=== PATIENT | male | born 1990 | race Caucasian/White ===

== ENCOUNTER 2018-04-19 00:02 | Emergency (ER) | payer BC ==
[2018-04-19 00:11] VITALS: Ht 190.5 cm
[2018-04-19 00:55] VITALS: BP 136/84
== END 2018-04-19 00:55 | disposition home or self-care (01) ==
LOC: ED 00:02
DX: K02.9 Dental caries, unspecified (principal); Z88.0 Allergy status to penicillin
CPT/HCPCS: J2001; J3490